=== PATIENT | male | born 1980 | race African-American/Black ===

== ENCOUNTER 2017-09-12 22:03 | Emergency (ER) | payer MEDICARE, MEDICAID ==
[~2017-09-12] VITALS: Ht 185.4 cm; Wt 120.0 kg
[~2017-09-12 22:03] MED LIST: BENZ1TAB PO; CLON.2 PO; DEPA500T3 PO; HALO20TA PO; ZIPR40 PO
[2017-09-12 22:28] VITALS: BP 142/82; PULSE 101; RESP 16; TEMP 98.2; O2SAT 99
== END 2017-09-13 01:00 | disposition left against medical advice (07) ==
LOC: NED 23:59
DX: Z53.21 Procedure and treatment not carried out due to patient leaving prior to being seen by health care provider (principal)
CPT/HCPCS: 99281

== ENCOUNTER 2017-09-16 21:04 | Emergency (ER) | payer MEDICARE, MEDICAID, OTHER ==
--- NOTE | 2017-09-16 21:48 | PD ---
HPI Chief Complaint: Psychiatric Symptoms Time Seen by Provider: 21:21 Travel History International Travel<30 days: No Contact w/Intl Traveler<30days: No Traveled to known affect area: No History of Present Illness HPI 37-year-old male that presents to the ED for evaluation of a crack. Patient was Rgean acted by police after apparently he got agitated and will not collaborate with caregiver. Patient apparently left the caregiver's house today and was knocking on people's houses and apparently disrupting the neighbors. Patient came back to the house and apparently will not collaborate with caregiver and will not take his medications. Police was contacted and they brought him here. He does have a significant history of bipolar disorder and has been here before for the same. Patient himself is not a good historian. He does appear to have some underlying mental disability. He denies any medical issues or chest pain or shortness of breath. Allergies to medication. Unclear as to how long the symptoms have been going but appear to have worsened today. Patient cannot really give me good history. He denies any suicidal or homicidal ideation. Allegedly he was very aggressive by police but currently he is cooperating. PFSH Past Medical History Blood Disorders: No Bipolar Disorder: Yes Depression: No Cancer: No Cardiovascular Problems: No High Cholesterol: Yes Developmental Delay: Yes (MR ) Diminished Hearing: No Endocrine: No Gastrointestinal Disorders: No Genitourinary: No Musculoskeletal: No Neurologic: No Psychiatric: Yes Reproductive: No Respiratory: Yes Past Surgical History Abdominal Surgery: No Cardiac Surgery: No Ear Surgery: No Endocrine Surgery: No Eye Surgery: No Genitourinary Surgery: No Gynecologic Surgery: No Oral Surgery: No Thoracic Surgery: No Other Surgery: No Social History Alcohol Use: No Tobacco Use: No Allergies-Medications (Allergen,Severity, Reaction): Coded Allergies: No Known Allergies (Verified Adverse Reaction, Unknown, 09/12/17) Reported Meds & Prescriptions Reported Meds & Active Scripts Active Reported Catapres 0.2 mg (Clonidine HCl) 0.2 Mg Tab 0.4 Mg PO HS Catapres 0.2 mg (Clonidine HCl) 0.2 Mg Tab 0.1 Mg PO BID Take at 7am and 4pm Geodon (Ziprasidone) 40 Mg Cap 40 Mg PO BID Take with meals Haloperidol 20 Mg Tab 10 Mg PO DAILY@1600 Haloperidol 20 Mg Tab 20 Mg PO DAILY IN THE AM Cogentin (Benztropine Mesylate) 2 Mg Tab 2 Mg PO DAILY PRN Depakote (Divalproex Sodium) 500 Mg Naty 500 Mg PO DAILY Depakote (Divalproex Sodium) 500 Mg Naty 1,000 Mg PO HS Review of Systems ROS Limitations: Poor Historian Except as stated in HPI: all other systems reviewed are Neg Physical Exam Exam Limitations: Poor Historian Narrative GENERAL: SKIN: Warm and dry. HEAD: Atraumatic. Normocephalic. EYES: Pupils equal and round. No scleral icterus. No injection or drainage. ENT: No nasal bleeding or discharge. Mucous membranes pink and moist. Tongue is midline. No uvula deviation. NECK: Trachea midline. No JVD. CARDIOVASCULAR: Regular rate and rhythm. No murmurs, S3, S4. RESPIRATORY: No accessory muscle use. Clear to auscultation. Breath sounds equal bilaterally. GASTROINTESTINAL: Abdomen soft, non-tender, nondistended. Hepatic and splenic margins not palpable. MUSCULOSKELETAL: Extremities without clubbing, cyanosis, or edema. No obvious deformities. Full range of motion of the upper and lower extremities bilaterally. 2+ pulses bilaterally. NEUROLOGICAL: Awake and alert. No obvious cranial nerve deficits. Motor grossly within normal limits. Five out of 5 muscle strength in the arms and legs. Normal speech. PSYCHIATRIC: Appropriate mood and affect; insight and judgment normal. Data Data Orders Orders Complete Blood Count With Diff (09/16/17 21:11) Comprehensive Metabolic Panel (09/16/17 21:11) Thyroid Stimulating Hormone (09/16/17 21:11) Psych Screen (09/16/17 21:11) Drug Screen, Random Urine (09/16/17 21:11) Alcohol (Ethanol) (09/16/17 21:11) Salicylates (Aspirin) (09/16/17 21:11) Tylenol (Acetaminophen) (09/16/17 21:11) Valproic Acid (Depakene) (09/16/17 21:30) MDM Medical Decision Making Medical Screen Exam Complete: Yes Emergency Medical Condition: Yes Medical Record Reviewed: Yes Differential Diagnosis Depression versus suicidal ideation versus anxiety versus adjustment disorder versus mood disorder versus bipolar disorder versus schizophrenia versus paranoid disorder versus psychosis versus substance abuse versus alcohol abuse versus alcohol induced psychosis versus homicidality addition versus cutting versus personality disorder Narrative Course 37-year-old male that presents to the ED for evaluation of psych. Patient was properly examined and was found to have signs and symptoms consistent with psychiatric illness. No significant medical distress. Labs will be drawn. Patient will be medically clear. Okay to be seen by psych. Mental health screening was discussed with the patient. Diagnosis Primary Impression: impullse control disorder Luc Manzanares Sep 16, 2017 21:48
[2017-09-16 22:17] LABS: AUTOMATED NEUTROPHIL # 4.6 TH/MM3 (1.8-7.7); BASOPHIL # 0.1 TH/MM3 (0-0.2); BASOPHIL % 0.8 % (0.0-2.0); EOSINOPHIL # 0.1 TH/MM3 (0-0.4); EOSINOPHIL % 1.8 % (0.0-4.0); HEMATOCRIT 42.3 % (39.0-51.0); HEMOGLOBIN 14.2 GM/DL (13.0-17.0); LYMPH % 26.7 % (9.0-44.0); LYMPHOCYTE # 2.1 TH/MM3 (1.0-4.8); MEAN CELL VOLUME 86.3 FL (80.0-100.0); MEAN CORPUSCULAR HEMOGLOBIN 28.9 PG (27.0-34.0); MEAN CORPUSCULAR HGB CONC 33.5 % (32.0-36.0); MONO % 11.9 % (0.0-8.0); MONOCYTE # 0.9 TH/MM3 (0-0.9); NEUT % 58.8 % (16.0-70.0); PLATELET COUNT 250 TH/MM3 (150-450); RED CELL DISTRIBUTION WIDTH 14.7 % (11.6-17.2); WHITE BLOOD COUNT 7.8 TH/MM3 (4.0-11.0)
[2017-09-16] MEDS ORDERED: BENZ0.5T PO (22:26)
[2017-09-16] MEDS ORDERED: ZIPR40 PO ×2 (22:31)
[2017-09-16] MEDS ORDERED: DEPA500T3 PO (22:31)
[2017-09-16] MEDS ORDERED: CLON0.2T PO (22:31)
[2017-09-16] MEDS ORDERED: HALO10TA PO (22:31)
[2017-09-16] MEDS ORDERED: LISI10TA3 PO (22:31)
[2017-09-16] MEDS ORDERED: HALO20TA PO (22:31)
[2017-09-16 22:35] LABS: ALBUMIN 3.5 GM/DL (3.4-5.0); ALT (GPT) 40 U/L (12-78); AST (GOT) 29 U/L (15-37); BLOOD UREA NITROGEN 17 MG/DL (7-18); CALCIUM 8.9 MG/DL (8.5-10.1); CHLORIDE 108 MEQ/L (98-107); CREATININE 1.16 MG/DL (0.60-1.30); GLOMERULAR FILTRATION RATE 86 ML/MIN (>89); GLUCOSE,RANDOM 93 MG/DL (74-106); SODIUM (NA) 142 MEQ/L (136-145)
[2017-09-16 22:41] LABS: ALKALINE PHOSPHATASE 64 U/L (45-117); TOTAL BILIRUBIN ADULT 0.2 MG/DL (0.2-1.0); TOTAL PROTEIN 7.8 GM/DL (6.4-8.2)
[2017-09-16 22:42] LABS: ACETAMINOPHEN LESS THAN 2.0 MCG/ML (10.0-30.0)
[2017-09-17 03:08] VITALS: BP 115/65; PULSE 77; RESP 16; TEMP 98.4; O2SAT 98
[2017-09-17 10:00] VITALS: BP 133/65; PULSE 89; RESP 16; TEMP 97.8; O2SAT 98
[2017-09-17] MEDS ORDERED: HALOPERIDOL 10 MG TAB PO ONE (14:00)
[2017-09-17] MEDS ORDERED: LISINOPRIL 10 MG TAB PO SCH (14:00)
[2017-09-17 14:57] VITALS: BP 158/92; PULSE 100; RESP 18; TEMP 98.4; O2SAT 98
--- NOTE | 2017-09-17 15:03 | PD ---
History of Present Illness Chief Complaint: Psychiatric Symptoms Time Seen by Provider: 14:00 Travel History International Travel<30 Days: No Contact w/Intl Traveler<30days: No Known affected area: No Legal Status Legal Status: Regan Act Regan Act Signed By: Anthony Orellana Regan Act Comment: 2017 @ 2110 History of Present Illness: History of Present Illness HPI 37-year-old male with history of impulse control disorder, bipolar disorder, as well as intellectual disability that presents to the ED under a Regan act initiated by police after apparently he got agitated and will not collaborate with his caregiver. Patient apparently left the caregiver's house today and was knocking on people's houses and apparently disrupting the neighbors. Patient came back to the house and apparently will not take his medications. The patient was monitor and secure environment and demonstrated no evidence of any restlessness or agitation. His morning medications were ordered and he did take them without any difficulty. Electronic medical record is reviewed. Patient has been seen in this ED with similar complaints and his last visit was in 2015. His last psychiatric hospitalization here was in 2011. The patient is in his room. He is casually dressed wearing T-shirt and shorts. He only answers minimal questions. He demonstrates child like behaviors. He denies he wants to hurt himself or others. He denies hearing any voices. He has remained like stated previously and adequate behavioral control and has been medication compliant. PFSH Past Medical History Blood Disorders: No Bipolar Disorder: Yes Depression: No Cancer: No Cardiovascular Problems: No High Cholesterol: Yes Developmental Delay: Yes (MRDD ) Diminished Hearing: No Endocrine: No Gastrointestinal Disorders: No Genitourinary: No Musculoskeletal: No Neurologic: No Psychiatric: Yes Reproductive: No Respiratory: Yes Past Surgical History Abdominal Surgery: No Cardiac Surgery: No Ear Surgery: No Endocrine Surgery: No Eye Surgery: No Genitourinary Surgery: No Gynecologic Surgery: No Oral Surgery: No Thoracic Surgery: No Other Surgery: No Psychiatric History Psychiatric History Hx Psychiatric Treatment: Patient is reportedly seeing Dr.Amparo Horacio MD, outpatient. Hx Bipolar Disorder, Mental Retardation. History of Inpatient Treatment: Yes Guns or firearms in home: No Social History Single, lives in a long-term. Hx Alcohol Use: No Hx Tobacco Use: No Hx Substance Use: No Substance Use Type: Marijuana Hx of Substance Use Treatment: No Family Psychiatric History Unknown Allergies-Medications (Allergen,Severity, Reaction): Coded Allergies: No Known Allergies (Verified Allergy, Unknown, 09/17/17) Reported Meds & Prescriptions Reported Meds & Active Scripts Active Reported Geodon (Ziprasidone) 40 Mg Cap 40 Mg PO HS Lisinopril 10 Mg Tab 10 Mg PO DAILY Geodon (Ziprasidone) 40 Mg Cap 40 Mg PO BID Clonidine (Clonidine HCl) 0.2 Mg Tab 0.2 Mg PO BID PRN Depakote ER (Divalproex Sodium) 500 Mg Naty 1,000 Mg PO HS Haloperidol 20 Mg Tab 20 Mg PO DAILY Haloperidol 10 Mg Tab 10 Mg PO HS Benztropine (Benztropine Mesylate) 0.5 Mg Tab 2 Mg PO HS Review of Systems ROS Limitations: Poor Historian Mental Status Examination Appearance: Appropriate Consciousness: Alert Orientation: x4, Person, Situation Motor Activity: Normal gait Speech: Hesitant, Slow, Other (Minimal responses) Language: Other (4) Fund of Knowledge: Poor Attention and Concentration: Inadequate Memory: Impaired (Poor historian) Mood: Appropriate Affect: Appropriate Thought Process & Associations: Intact (Does not appear internally stimulated) Thought Content: Appropriate (Minimal verbalization) Hallucination Type: None Delusion Type: None Suicidal Ideation: No Suicidal Plan: No Suicidal Intention: No Homicidal Ideation: No Homicidal Plan: No Homicidal Intention: No Insight: Poor Judgment: Impulsive MDM Medical Decision Making Medical Record Reviewed: Yes Assessment/Plan 37-year-old male with history of impulse control disorder, bipolar disorder, as well as intellectual disability that presents to the ED under a Regan act initiated by police after apparently he got agitated and will not collaborate with his caregiver. Patient apparently left the caregiver's house today and was knocking on people's houses and apparently disrupting the neighbors. Patient came back to the house and apparently will not take his medications. The patient was monitor and secure environment and demonstrated no evidence of any restlessness or agitation. His morning medications were ordered and he did take them without any difficulty. Patient has been monitored here and has presented no behavioral dysregulation, no aggressive behavior, does not appear internally stimulated and accepted his medications. Patient's behaviors are possibly related to his intellectual disability and therefore would not be of benefit to him to be admitted to inpatient psychiatry at this time. The Regan act will be lifted. Psychiatric clear for discharge from the ED. Return to outpatient provider with no changes in medications recommended. BA is lifted. Orders Orders Complete Blood Count With Diff (09/16/17 21:11) Comprehensive Metabolic Panel (09/16/17 21:11) Thyroid Stimulating Hormone (09/16/17 21:11) Psych Screen (09/16/17 21:11) Drug Screen, Random Urine (09/16/17 21:11) Alcohol (Ethanol) (09/16/17 21:11) Salicylates (Aspirin) (09/16/17 21:11) Tylenol (Acetaminophen) (09/16/17 21:11) Valproic Acid (Depakene) (09/16/17 21:50) Diet Regular Basic (09/17/17 Breakfast) Diet Regular Basic (09/17/17 Lunch) Haloperidol (Haldol) (09/17/17 14:00) Lisinopril (Prinivil) (09/17/17 14:00) Results Vital Signs Date Time Temp Pulse Resp B/P (MAP) Pulse Ox O2 Delivery O2 Flow Rate FiO2 09/17/17 14:57 98.4 100 18 158/92 (114) 98 Room Air 09/17/17 10:00 97.8 89 16 133/65 (87) 98 Room Air 09/17/17 03:08 98.4 77 16 115/65 (82) 98 Room Air Laboratory Tests Test 09/16/17 21:50 09/17/17 09:40 White Blood Count 7.8 Red Blood Count 4.90 Hemoglobin 14.2 Hematocrit 42.3 Mean Corpuscular Volume 86.3 Mean Corpuscular Hemoglobin 28.9 Mean Corpuscular Hemoglobin Concent 33.5 Red Cell Distribution Width 14.7 Platelet Count 250 Mean Platelet Volume 9.0 Neutrophils (%) (Auto) 58.8 Lymphocytes (%) (Auto) 26.7 Monocytes (%) (Auto) 11.9 Eosinophils (%) (Auto) 1.8 Basophils (%) (Auto) 0.8 Neutrophils # (Auto) 4.6 Lymphocytes # (Auto) 2.1 Monocytes # (Auto) 0.9 Eosinophils # (Auto) 0.1 Basophils # (Auto) 0.1 CBC Comment DIFF FINAL Differential Comment Blood Urea Nitrogen 17 Creatinine 1.16 Random Glucose 93 Total Protein 7.8 Albumin 3.5 Calcium Level 8.9 Alkaline Phosphatase 64 Aspartate Amino Transf (AST/SGOT) 29 Alanine Aminotransferase (ALT/SGPT) 40 Total Bilirubin 0.2 Sodium Level 142 Potassium Level 4.4 Chloride Level 108 Carbon Dioxide Level 26.0 Anion Gap 8 Estimat Glomerular Filtration Rate 86 Thyroid Stimulating Hormone 3rd Gen 3.850 Salicylates Level LESS THAN 1.7 Acetaminophen Level LESS THAN 2.0 Valproic Acid (Depakene) Level 80 Ethyl Alcohol Level LESS THAN 3 Urine Opiates Screen NEG Urine Barbiturates Screen NEG Urine Amphetamines Screen NEG Urine Benzodiazepines Screen NEG Urine Cocaine Screen NEG Urine Cannabinoids Screen NEG Diagnosis Primary Impression: impullse control disorder Additional Impression: Intellectual disability Psychiatrically Cleared: Yes Med/ Other Pt Specific Info: No Change to Meds Disposition: 01 DISCHARGE HOME Condition: Stable Problem Qualifiers Polly Sharma Sep 17, 2017 15:03
--- NOTE | 2017-09-17 16:25 | PD ---
Physical Exam Time Seen by Provider: 16:24 HIRAL Coyne has evaluated patient, lifted the Regan act and cleared the patient for discharge. The patient's mom is coming to pick him up. Data Data Last Documented VS Vital Signs Date Time Temp Pulse Resp B/P (MAP) Pulse Ox O2 Delivery O2 Flow Rate FiO2 09/17/17 14:57 98.4 100 18 158/92 (114) 98 Room Air Orders Orders Complete Blood Count With Diff (09/16/17 21:11) Comprehensive Metabolic Panel (09/16/17 21:11) Thyroid Stimulating Hormone (09/16/17 21:11) Psych Screen (09/16/17 21:11) Drug Screen, Random Urine (09/16/17 21:11) Alcohol (Ethanol) (09/16/17 21:11) Salicylates (Aspirin) (09/16/17 21:11) Tylenol (Acetaminophen) (09/16/17 21:11) Valproic Acid (Depakene) (09/16/17 21:50) Diet Regular Basic (09/17/17 Breakfast) Diet Regular Basic (09/17/17 Lunch) Haloperidol (Haldol) (09/17/17 14:00) Lisinopril (Prinivil) (09/17/17 14:00) Diet Regular Basic (09/17/17 Dinner) Labs Laboratory Tests Test 09/16/17 21:50 09/17/17 09:40 White Blood Count 7.8 TH/MM3 Red Blood Count 4.90 MIL/MM3 Hemoglobin 14.2 GM/DL Hematocrit 42.3 % Mean Corpuscular Volume 86.3 FL Mean Corpuscular Hemoglobin 28.9 PG Mean Corpuscular Hemoglobin Concent 33.5 % Red Cell Distribution Width 14.7 % Platelet Count 250 TH/MM3 Mean Platelet Volume 9.0 FL Neutrophils (%) (Auto) 58.8 % Lymphocytes (%) (Auto) 26.7 % Monocytes (%) (Auto) 11.9 % Eosinophils (%) (Auto) 1.8 % Basophils (%) (Auto) 0.8 % Neutrophils # (Auto) 4.6 TH/MM3 Lymphocytes # (Auto) 2.1 TH/MM3 Monocytes # (Auto) 0.9 TH/MM3 Eosinophils # (Auto) 0.1 TH/MM3 Basophils # (Auto) 0.1 TH/MM3 CBC Comment DIFF FINAL Differential Comment Blood Urea Nitrogen 17 MG/DL Creatinine 1.16 MG/DL Random Glucose 93 MG/DL Total Protein 7.8 GM/DL Albumin 3.5 GM/DL Calcium Level 8.9 MG/DL Alkaline Phosphatase 64 U/L Aspartate Amino Transf (AST/SGOT) 29 U/L Alanine Aminotransferase (ALT/SGPT) 40 U/L Total Bilirubin 0.2 MG/DL Sodium Level 142 MEQ/L Potassium Level 4.4 MEQ/L Chloride Level 108 MEQ/L Carbon Dioxide Level 26.0 MEQ/L Anion Gap 8 MEQ/L Estimat Glomerular Filtration Rate 86 ML/MIN Thyroid Stimulating Hormone 3rd Gen 3.850 uIU/ML Salicylates Level LESS THAN 1.7 MG/DL Acetaminophen Level LESS THAN 2.0 MCG/ML Valproic Acid (Depakene) Level 80 MCG/ML Ethyl Alcohol Level LESS THAN 3 MG/DL Urine Opiates Screen NEG Urine Barbiturates Screen NEG Urine Amphetamines Screen NEG Urine Benzodiazepines Screen NEG Urine Cocaine Screen NEG Urine Cannabinoids Screen NEG MDM Supervised Visit with NICKI: No Narrative Course HIRAL Matias has evaluated patient, lifted the Jass act and cleared the patient for discharge. The patient's mom is coming to pick him up. Patient contracts safety. Denies suicidal or homicidal ideations. Patient will be provided community resource packet to [facility] for follow-up. Has friends and family for support. Patient was medically cleared by alternate provider prior to psych screening. Patient has been evaluated by psychiatry and and is now cleared for discharge. Diagnosis Primary Impression: impullse control disorder Referrals: [facility] (Out patient) [facility] Primary Care Physician Psychiatrist K[facility] Patient Instructions: General Instructions, Mood Disorders (ED) Additional Instruction: Contract safety to your self and others Follow-up with psychiatry Follow-up with primary care provider Follow-up with Kyler Vasquez Return to the emergency department immediately with worsening of symptoms Med/Other Pt SpecificInfo: No Change to Meds, No Meds Exist/No RX given Disposition: 01 DISCHARGE HOME Condition: Stable Adrianna Rodriguez Sep 17, 2017 16:25
== END 2017-09-17 17:58 | disposition home or self-care (01) ==
LOC: NEPJ 21:04
DX: F63.9 Impulse disorder, unspecified (principal); F31.9 Bipolar disorder, unspecified; Z79.899 Other long term (current) drug therapy
CPT/HCPCS: 80053; 80164; 80307; 84443; 85025; 99283